=== PATIENT | male | born 1955 | race American Indian/Alaskan Native ===

== ENCOUNTER 2021-04-27 13:13 | Emergency (ER) | payer MEDICARE, BC ==
[2021-04-27 14:58] LABS: Basophils % (Auto) 0.1 % (0.0-1.8); Eosinophils % (Auto) 0.2 % (0.0-4.3); Hematocrit 46.1 % (35.5-45.6); Hemoglobin 14.5 gm/dl (11.8-15.2); Lymphocytes # (Auto) 1.1 K/mm3 (1.2-5.4); Lymphocytes % (Auto) 10.7 % (13.4-35.0); Mean Corpuscular HGB Conc 31 % (32-34); Mean Corpuscular Volume 86 fl (84-94); Monocytes # (Auto) 0.4 K/mm3 (0.0-0.8); Monocytes % (Auto) 3.9 % (0.0-7.3); Platelet Count 234 K/mm3 (140-440); Red Blood Count 5.38 M/mm3 (3.65-5.03)
--- NOTE | 2021-04-27 14:58 | Emergency Department Report ---
ED Altered Mental Status HPI - General Stated Complaint: HIGH BLOOD SUGAR Time Seen by Provider: 04/27/21 14:44 Source: EMS, old records reviewed (No previous medical record available for review) Mode of arrival: Stretcher Limitations: Altered Mental Status, Physical Limitation - History of Present Illness Initial Comments: 66-year male with a past medical history of diabetes presents to the hospital alteration mental status and hyperglycemia. Patient arrives via EMS. History obtained from EMS. Patient apparently last saw the patient normal around dinnertime last night. They heard him ambulate to the restroom at 10 AM. 11 AM they heard him fall and found him on the floor, altered, with an abrasion to right brow. Upon EMS arrival patient's glucose read high. Family states he has been noncompliant with his medication. EMS administered 1 L of normal saline and glucose went down to 532 and then returned to high upon repeat. Patient was assessed by me on the EMS was awaiting bed assignment in the ED. Patient is nonverbal and able to only follow some commands. He appears to be flaccid in the right arm therefore code stroke initiated and I case discussed with neurology attending. Patient placed in c-collar as well interviewed at the bedside once I got in contact with Dr. Jeong at [place] She clarifies that patient got up to eat breakfast at 7 AM and was last seen normal at 10 AM before going to bed for a nap. She then heard him get up approximately 20 minutes later and fall and found him altered. Patient's medications include Metformin, lisinopril, and glipizide. reports he has been noncompliant with meds x2 days. At his baseline he walks without assistance and does not have any deficits. Patient's Leanna Parker [phone] - Related Data Home Medications Medication Instructions Recorded Confirmed Last Taken Metformin HCl [metFORMIN] 1,000 mg PO BID 04/27/21 04/27/21 Unknown glipiZIDE [Glucotrol] 10 mg PO BID 04/27/21 04/27/21 Unknown lisinopriL [Lisinopril] 20 mg PO 04/27/21 Unknown Allergies Allergy/AdvReac Type Severity Reaction Status Date / Time No Known Allergies Allergy Verified 04/27/21 16:19 ED Review of Systems ROS: Stated complaint: HIGH BLOOD SUGAR Other details as noted in HPI Comment: Unobtainable due to pts medical conditions ED Past Medical Hx - Past Medical History Hx Hypertension: Yes Hx Diabetes: Yes - Medications Home Medications: Home Medications Medication Instructions Recorded Confirmed Last Taken Type Metformin HCl [metFORMIN] 1,000 mg PO BID 04/27/21 04/27/21 Unknown History glipiZIDE [Glucotrol] 10 mg PO BID 04/27/21 04/27/21 Unknown History lisinopriL [Lisinopril] 20 mg PO 04/27/21 Unknown History ED Physical Exam - Other Other exam information: General: No acute distress Head: Abrasion to right brow Eyes: normal appearance ENT: Moist mucous membranes Neck: Normal appearance, no midline tenderness Chest: Clear to auscultation bilaterally, no tachypnea CV: Regular rate and rhythm Abdomen: Soft, normal bowel sounds, nontender, nondistended, no rebound or guarding Back: Normal inspection Extremity: Normal inspection, full range of motion Neuro: Alert nonverbal, see NIH stroke scale Skin: No rash - Assessment Assessment Interval: Baseline - Level of Consciousness 1a. Level of Consciousness: alert/keenly responsive - LOC Questions 1b. LOC Questions: answers no questions correctly - LOC Command 1c. LOC Commands: performs no tasks correctly - Best Gaze 2. Best Gaze: forced deviation - Visual 3. Visual: no visual loss - Facial Palsy 4. Facial Palsy: minor paralysis - Motor Arm 5a. Motor Arm Left: no drift 5b. Motor Arm Right: no movement - Motor Leg 6a. Motor Leg Left: no drift 6b. Motor Leg Right: no movement - Limb Ataxia 7. Limb Ataxia: absent - Sensory 8. Sensory: normal - Best Language 9. Best Language: mute/global aphasia - Dysarthria 10. Dysarthria: severe dysarthria - Extinction and Inattention 11. Extinction/Inattention: no abnormality - Scoring Total Score: 20 Stroke Severity: Moderate to Severe Stroke ED Course Vital Signs 04/27/21 04/27/21 04/27/21 15:35 15:45 16:00 Pulse Rate 119 H 72 75 Respiratory 14 19 18 Rate Blood Pressure 129/88 118/92 O2 Sat by Pulse 99 99 Oximetry 04/27/21 04/27/21 04/27/21 16:15 16:31 16:45 Pulse Rate 81 81 89 Respiratory 17 15 12 Rate Blood Pressure 118/92 140/86 140/86 O2 Sat by Pulse 100 Oximetry 04/27/21 04/27/21 17:00 17:15 Pulse Rate 76 84 Respiratory 13 13 Rate Blood Pressure 138/91 138/85 O2 Sat by Pulse 99 98 Oximetry - Consultations Consultation #1: 04/27/21 4:06 PM Case discussed with Dr. Leal neuro pediatric cns at [facility] who agrees patient may be a candidate for intervention however, did not have any neuro ICU beds recommends to call [facility] called at 4:09 PM. 4:45 PM patient was accepted by Dr. Morales. Will receive repeat imaging to determine if patient is a candidate for intervention. This was explained to patient's . She was instructed to keep her phone available since she will be needed to consent for further treatment - Lab Data Result diagrams: 04/27/21 14:49 04/27/21 14:49 Lab Results 04/27/21 04/27/21 04/27/21 Range/Units 14:49 14:49 14:49 WBC 10.1 (4.5-11.0) K/mm3 RBC 5.38 H (3.65-5.03) M/mm3 Hgb 14.5 (11.8-15.2) gm/dl Hct 46.1 H (35.5-45.6) % MCV 86 (84-94) fl MCH 27 L (28-32) pg MCHC 31 L (32-34) % RDW 15.0 (13.2-15.2) % Plt Count 234 (140-440) K/mm3 Lymph % (Auto) 10.7 L (13.4-35.0) % [place] % (Auto) 3.9 (0.0-7.3) % Eos % (Auto) 0.2 (0.0-4.3) % Baso % (Auto) 0.1 (0.0-1.8) % Lymph # (Auto) 1.1 L (1.2-5.4) K/mm3 [place] # (Auto) 0.4 (0.0-0.8) K/mm3 Eos # (Auto) 0.0 (0.0-0.4) K/mm3 Baso # (Auto) 0.0 (0.0-0.1) K/mm3 Seg Neutrophils % 85.1 H (40.0-70.0) % Seg Neutrophils # 8.6 H (1.8-7.7) K/mm3 PT 13.2 (12.2-14.9) Sec. INR 0.90 (0.87-1.13) APTT 23.0 L (24.2-36.6) Sec. Thrombin Time 18.5 (15.1-19.6) Sec. VBG pH (7.320-7.420) Sodium 137 (137-145) mmol/L Potassium 3.8 (3.6-5.0) mmol/L Chloride 99.2 (98-107) mmol/L Carbon Dioxide 19 L (22-30) mmol/L Anion Gap 23 mmol/L BUN 12 (9-20) mg/dL Creatinine 1.0 (0.8-1.3) mg/dL Estimated GFR > 60 ml/min BUN/Creatinine Ratio 12 % Glucose 496 H (75-100) mg/dL POC Glucose (70-105) mg/dL Calcium 8.9 (8.4-10.2) mg/dL Total Bilirubin 0.40 (0.1-1.2) mg/dL AST 15 (5-40) units/L ALT 12 (7-56) units/L Alkaline Phosphatase 85 (35-129) units/L Total Creatine Kinase 119 (55-170) units/L CK-MB (CK-2) 2.2 (0.0-4.0) ng/mL CK-MB (CK-2) Rel Index 1.8 (0-4) Troponin T < 0.010 (0.00-0.029) ng/mL Total Protein 5.9 L (6.3-8.2) g/dL Albumin 3.7 L (3.9-5) g/dL Albumin/Globulin Ratio 1.7 % Plasma/Serum Alcohol (0-0.07) % 04/27/21 04/27/21 04/27/21 Range/Units 14:49 14:52 17:39 WBC (4.5-11.0) K/mm3 RBC (3.65-5.03) M/mm3 Hgb (11.8-15.2) gm/dl Hct (35.5-45.6) % MCV (84-94) fl MCH (28-32) pg MCHC (32-34) % RDW (13.2-15.2) % Plt Count (140-440) K/mm3 Lymph % (Auto) (13.4-35.0) % [place] % (Auto) (0.0-7.3) % Eos % (Auto) (0.0-4.3) % Baso % (Auto) (0.0-1.8) % Lymph # (Auto) (1.2-5.4) K/mm3 [place] # (Auto) (0.0-0.8) K/mm3 Eos # (Auto) (0.0-0.4) K/mm3 Baso # (Auto) (0.0-0.1) K/mm3 Seg Neutrophils % (40.0-70.0) % Seg Neutrophils # (1.8-7.7) K/mm3 PT (12.2-14.9) Sec. INR (0.87-1.13) APTT (24.2-36.6) Sec. Thrombin Time (15.1-19.6) Sec. VBG pH 7.345 (7.320-7.420) Sodium (137-145) mmol/L Potassium (3.6-5.0) mmol/L Chloride (98-107) mmol/L Carbon Dioxide (22-30) mmol/L Anion Gap mmol/L BUN (9-20) mg/dL Creatinine (0.8-1.3) mg/dL Estimated GFR ml/min BUN/Creatinine Ratio % Glucose (75-100) mg/dL POC Glucose 382 H (70-105) mg/dL Calcium (8.4-10.2) mg/dL Total Bilirubin (0.1-1.2) mg/dL AST (5-40) units/L ALT (7-56) units/L Alkaline Phosphatase (35-129) units/L Total Creatine Kinase (55-170) units/L CK-MB (CK-2) (0.0-4.0) ng/mL CK-MB (CK-2) Rel Index (0-4) Troponin T (0.00-0.029) ng/mL Total Protein (6.3-8.2) g/dL Albumin (3.9-5) g/dL Albumin/Globulin Ratio % Plasma/Serum Alcohol < 0.01 (0-0.07) % - EKG Data -: EKG Interpreted by In EKG shows normal: sinus rhythm, ST-T waves (no stemi) Rate: normal (77) When compared to previous EKG there are: previous EKG unavailable - Radiology Data Radiology results: report reviewed CT head/brain wo con INDICATION / CLINICAL INFORMATION: 66 years Male; ams, fall, head injury, right sided weakness. TECHNIQUE: Routine CT head without contrast. All CT scans at this location are performed using CT dose reduction for ALARA by means of automated exposure control. COMPARISON: None. FINDINGS: BRAIN / INTRACRANIAL CONTENTS: The motion degrades the image quality at. However, there is subtle loss of the ramirez-white matter differentiation along the left basal ganglia and insular region concerning for evolving infarct. Additionally, there is relative increased attenuation within the proximal left MCA concerning for a thrombus given the above findings. There otherwise appears be mild cerebral white matter disease most consistent with microvascular angiopathy. There is no clear CTA evidence of intracranial hemorrhage or significant mass effect. ORBITS: No significant abnormality of visualized orbits. SINUSES / MASTOIDS: No significant abnormality in the visualized paranasal sinuses or mastoid air cells. CRANIOCERVICAL JUNCTION: No significant abnormality. ADDITIONAL FINDINGS: None. IMPRESSION: 1. The findings are indicative of early changes of left MCA infarct with thrombus within the proximal segment as detailed above. 2. There is no clear CT evidence of acute intracranial hemorrhage. CT cervical spine wo con INDICATION / CLINICAL INFORMATION: 66 years Male; ams, fall, head injury, right sided weakness. TECHNIQUE: Axial CT images of the cervical spine were obtained. Sagittal and coronal reformatted images were produced. All CT scans at this location are performed using CT dose reduction for ALARA by means of automated exposure control. COMPARISON: None available. FINDINGS: POST-SURGICAL CHANGES: None. ALIGNMENT: There is mild curvature the cervical spine, convex toward the left. There is no significant spondylolisthesis. VERTEBRAE: There is mild to moderate disc space narrowing from C4-5 to C6-7 with associated endplate changes. Mild findings are also noted at T1-2. However, there is no clear CT evidence of acute fracture involving cervical spine. INTRAVERTEBRAL DISCS: The broad-based disc bulge at C3-4 effaces the ventral subarachnoid space. There is mild neural foraminal narrowing bilaterally. There is moderate right foraminal narrowing at C4-5. Additionally, there appears be right paracentral disc protrusion which mildly deforms the right ventral cord. The spondylosis at C5-6 appears to mildly encroach on the ventral cord. There is moderate foraminal narrowing bilaterally. The spondylosis at C6-7 is greater on the left with effacement of the left lateral recess. There is moderate to marked left and moderate right neural foraminal narrowing. PARASPINAL SOFT TISSUES: No prevertebral soft tissue fluid collections are appreciated. ADDITIONAL FINDINGS: None. IMPRESSION: 1. There is no clear CT evidence of acute fracture involving cervical spine. 2. There are multilevel advanced to changes as detailed above. The findings. Include a right paracentral disc protrusion at C4-5 which mildly deforms the right ventral cord. CTA head with intravenous contrast CLINICAL HISTORY: Right hemiparesis. stroke sx 100ML 350 Omnipaque TECHNIQUE: 0.625 mm thick contiguous axial scans were obtained from the skull base to the skull vertex during rapid bolus administration of intravenous contrast material. Multiplanar reconstructions were produced in the coronal and sagittal planes. In addition 3 plane MIP instructions were produced and reviewed for this report. The axial source images and reconstructed images were reviewed for this report. CONTRAST DOSE REPORT: Omnipaque 350: 100 ml administered intravenously. All CT scans at this location are performed using CT dose reduction for ALARA by means of automated exposure control. FINDINGS: Internal carotid arteries: Complete occlusion of the LICA continues through its intracranial segments. This extends into the communicating segment to the terminal bifurcation and involves proximal M1 segment of the left middle cerebral artery. Middle cerebral arteries:Normal and symmetrical M1 segments of the middle cerebral arteries are demonstrated. No abnormalities are seen on evaluation of the insular or opercular branches. Anterior cerebral arteries:Bilaterally symmetrical A1 segments are demonstrated. No abnormalities are seen along the course of the A2 segments or their visualized pericallosal branches. An intact anterior communicating artery without visualization of the A1 segment of the left anterior cerebral artery. Vertebral arteries: Right vertebral artery is dominant. Both vertebral arteries contribute to the basilar artery origin. Basilar artery:Basilar artery has an unremarkable appearance. Posterior cerebral arteries:Bilaterally symmetrical posterior cerebral arteries are identified. Posterior communicating arteries are demonstrated bilaterally. [place]: Intact. see above. Dural sinuses: Dural venous sinuses are well demonstrated on this exam. There is no evidence of dural sinus thrombosis. IMPRESSION: 1. Complete occlusion of the left internal carotid artery extending into the proximal M1 segment of the left middle cerebral artery. CT angio neck INDICATION / CLINICAL INFORMATION: 66 years Male; stroke sx. TECHNIQUE: Thin cut axial images obtained through the head during IV bolus contrast administration. Sagittal, coronal, and 3 plane MIP reconstructions performed by the technologist. NASCET type criteria used evaluate stenoses. All CT scans at this location are performed using CT dose reduction for ALARA by means of automated exposure control. COMPARISON: None available. FINDINGS: CAROTID ARTERIES: There is occlusion of the proximal left ICA approximately 1.5 cm from the bifurcation with notable tapering. The motion and beam hardening degrade the image quality. However, there is no evidence of reconstitution of the cervical segments. There is no significant stenosis involving the right internal carotid artery by NASCET criteria. 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 The right vertebral artery is dominant without significant focal stenosis. ARCH: The beam hardening particularly obscures the arch of vessels. However, there is no significant narrowing of the origins of the arch vessels at. There appears be developmental common origin of the brachiocephalic and left common carotid arteries. ADDITIONAL FINDINGS: IMPRESSION: There is occlusion of the proximal left ICA as detailed above. The findings were discussed with requesting physician regarding the CT head, CTA head and neck at the time of dictation at 2:51 PM Central standard time per the code stroke protocol. - Medical Decision Making 66-year-old male presents to the hospital alteration in mental status and hypoglycemia found to have acute stroke upon ED assessment by MD. Initially last known well time was reported as last night by EMS however, upon further clarification after ED work-up patient was last seen normal by about 10 AM. Patient was deemed not a thrombolytic candidate due to initial unclear history with last known well time admission reported by EMS to be last night. After my evaluation, suspicion and work-up for stroke, and clarification of history with family patient was out of the window to receive TPA but deemed a possible throm bectomy candidate after discussion with neuro interventionalists at both [facility] and [facility]. I initially spoke to Dr. LUZ Arguello however, [facility] did not have any neuro ICU beds. Patient was then subsequently discussed with Dr. Morales at [place] and accepted for emergent transfer with plan to repeat CTA and perfusion studies to deem if patient is a thrombectomy candidate. This was discussed with patient's at the bedside. Patient will be flown stat to [facility] via helicopter for possible intervention Patient did have a CT head and CT cervical spine to rule out traumatic injury due to fall IV insulin provided for hyperglycemia without signs of DKA/acidosis as per venous pH Critical Care Time: Yes Critical care time in (mins) excluding proc time.: 35 Critical care attestation.: If time is entered above; I have spent that time in minutes in the direct care of this critically ill patient, excluding procedure time. Critical Care Time: Minutes of critical care time excluding procedures were used in the care of the patient. shahid I obtained history from EMS at the bedside. I discussed treatment plan with the nursing team members. I reviewed electronic record. I spoke with family to obtain medical history. Patient required multiple phone calls with neurology and neuro interventional list as well as arrangements of transfer ED Disposition Clinical Impression: Acute stroke due to ischemia, Hyperglycemia, Noncompliance with medication regimen Disposition: 02 SHORT TERM HOSPITAL Is pt being admited?: No Condition: Stable
--- NOTE | 2021-04-27 15:04 | Consultation ---
History of Present Illness - Reason for Consult Consult date: 04/27/21 - History of Present Illness [facility] Consult Note # Demographics Consult Type: Acute Stroke Level 1 (0-4.5 hrs) Patient Location: Emergency Room First Name: Leah Last Name: Keith Date of : 1955 Age: 66 Gender: Male Facility: [facility] Time of Initial Page ( Time): 04/27/2021, 14:53 Time of Return Call ( Time): 04/27/2021, 14:53 # HPI History: 66yo man who is nonverbal and noted to have right sided weakness. He apparently went to bathroom at 10AM today. Last Known Normal: dinner last night. possible 10AM today # Scores Time of exam and NIHSS ( Time): 04/27/2021, 15:02 Level of Consciousness 1a: [0] = Alert; keenly responsive LOC Questions 1b: [2] = Answers neither correctly LOC Commands 1c: [2] = Performs neither correctly Best Gaze 2: [2] = Forced deviation Visual 3: [0] = No visual loss Facial Palsy 4: [1] = Minor paralysis Motor Arm Left 5a: [0] = No drift Motor Arm Right 5b: [4] = No movement Motor Leg Left 6a: [0] = No drift Motor Leg Right 6b: [4] = No movement Limb Ataxia 7: [0] = Absent Sensory 8: [0] = Normal Best Language 9: [3] = Mute Dysarthria 10: [2] = Severe dysarthria Extinction and Inattention 11: [0] = No abnormality NIHSS Total: 20 # Data Head CT: no bleed hyperdense MCA sign on left side # Assessment Impression: Ischemic Stroke (Acute) # Plan Thrombolytic/Intervention: Possible IA candidate Thrombolytic Exclusion: > 4.5 hours Possible IA Candidate: CTA pending Target Blood Pressure: SBP < 220 Labs: ESR lipid panel Imaging: (urgency: STAT): CT Angiogram Head and CT Angiogram Neck Imaging: (urgency: routine): MRI Brain without contrast Diagnostic Test: echo without bubble study Therapy/Evaluation: NPO until swallow evaluation PT/OT evaluation speech/swallow consultation Medication: aspirin 81 mg daily DVT Prophylaxis: SCD chemical DVT prophylaxis Other: permissive hypertension telemetry monitoring I have discussed my recommendations with the referring provider Disposition: transfer to [facility] capable facility
[2021-04-27 15:15] LABS: INR 0.9 (0.87-1.13)
[2021-04-27 15:16] LABS: Thrombin Time 18.5 Sec. (15.1-19.6)
[2021-04-27 15:24] LABS: Creatine Kinase MB 2.2 ng/mL (0.0-4.0)
[2021-04-27 15:26] LABS: Alanine Aminotransferase 12 units/L (7-56); Albumin 3.7 g/dL (3.9-5); BUN/Creatinine Ratio 12; Blood Urea Nitrogen 12 mg/dL (9-20); Calcium 8.9 mg/dL (8.4-10.2); Hemolysis Index 10
--- NOTE | 2021-04-27 15:44 | Cat Scan Report ---
CT head/brain wo con INDICATION / CLINICAL INFORMATION: 66 years Male; ams, fall, head injury, right sided weakness. TECHNIQUE: Routine CT head without contrast. All CT scans at this location are performed using CT dos e reduction for ALARA by means of automated exposure control. COMPARISON: None. FINDINGS: BRAIN / INTRACRANIAL CONTENTS: The motion degrades the image quality at. However, there is subtle los s of the ramirez-white matter differentiation along the left basal ganglia and insular region concerning for evolving infarct. Additionally, there is relative increased attenuation within the proximal left MCA concerning for a thrombus given the above findings. There otherwise appears be mild cerebral white matter disease most consistent with microvascular vivi opathy. There is no clear CTA evidence of intracranial hemorrhage or significant mass effect. ORBITS: No significant abnormality of visualized orbits. SINUSES / MASTOIDS: No significant abnormality in the visualized paranasal sinuses or mastoid air lea ls. CRANIOCERVICAL JUNCTION: No significant abnormality. ADDITIONAL FINDINGS: None. IMPRESSION: 1. The findings are indicative of early changes of left MCA infarct with thrombus within the proximal segment as detailed above. 2. There is no clear CT evidence of acute intracranial hemorrhage. Signer Name: Maik Tirado MD Signed: 04/27/2021 3:40 PM Workstation Name: [id number]
--- NOTE | 2021-04-27 15:51 | Cat Scan Report ---
CT cervical spine wo con INDICATION / CLINICAL INFORMATION: 66 years Male; ams, fall, head injury, right sided weakness. TECHNIQUE: Axial CT images of the cervical spine were obtained. Sagittal and coronal reformatted images were pr oduced. All CT scans at this location are performed using CT dose reduction for ALARA by means of aut omated exposure control. COMPARISON: None available. FINDINGS: POST-SURGICAL CHANGES: None. ALIGNMENT: There is mild curvature the cervical spine, convex toward the left. There is no significan t spondylolisthesis. VERTEBRAE: There is mild to moderate disc space narrowing from C4-5 to C6-7 with associated endplate changes. Mild findings are also noted at T1-2. However, there is no clear CT evidence of acute fractu re involving cervical spine. INTRAVERTEBRAL DISCS: The broad-based disc bulge at C3-4 effaces the ventral subarachnoid space. Ther e is mild neural foraminal narrowing bilaterally. There is moderate right foraminal narrowing at C4-5 . Additionally, there appears be right paracentral disc protrusion which mildly deforms the right garrick tral cord. The spondylosis at C5-6 appears to mildly encroach on the ventral cord. There is moderate foraminal n arrowing bilaterally. The spondylosis at C6-7 is greater on the left with effacement of the left late ral recess. There is moderate to marked left and moderate right neural foraminal narrowing. PARASPINAL SOFT TISSUES: No prevertebral soft tissue fluid collections are appreciated. ADDITIONAL FINDINGS: None. IMPRESSION: 1. There is no clear CT evidence of acute fracture involving cervical spine. 2. There are multilevel advanced to changes as detailed above. The findings. Include a right paracent ral disc protrusion at C4-5 which mildly deforms the right ventral cord. Signer Name: Maik Tirado MD Signed: 04/27/2021 3:46 PM Workstation Name: [id number]
--- NOTE | 2021-04-27 15:53 | Cat Scan Report ---
CTA head with intravenous contrast CLINICAL HISTORY: Right hemiparesis. stroke sx 100ML 350 Omnipaque TECHNIQUE: 0.625 mm thick contiguous axial scans were obtained from the skull base to the skull vertex during r apid bolus administration of intravenous contrast material. Multiplanar reconstructions were produced in the coronal and sagittal planes. In addition 3 plane MIP instructions were produced and reviewed for this report. The axial source images and reconstructed images were reviewed for this report. CONTRAST DOSE REPORT: Omnipaque 350: 100 ml administered intravenously. All CT scans at this location are performed using CT dose reduction for [facility] by means of automated e xposure control. FINDINGS: Internal carotid arteries: Complete occlusion of the LICA continues through its intracranial segments . This extends into the communicating segment to the terminal bifurcation and involves proximal M1 se gment of the left middle cerebral artery. Middle cerebral arteries:Normal and symmetrical M1 segments of the middle cerebral arteries are demon strated. No abnormalities are seen on evaluation of the insular or opercular branches. Anterior cerebral arteries:Bilaterally symmetrical A1 segments are demonstrated. No abnormalities are seen along the course of the A2 segments or their visualized pericallosal branches. An intact anteri or communicating artery without visualization of the A1 segment of the left anterior cerebral artery. Vertebral arteries: Right vertebral artery is dominant. Both vertebral arteries contribute to the bas ilar artery origin. Basilar artery:Basilar artery has an unremarkable appearance. Posterior cerebral arteries:Bilaterally symmetrical posterior cerebral arteries are identified. Post erior communicating arteries are demonstrated bilaterally. [place]: Intact. see above. Dural sinuses: Dural venous sinuses are well demonstrated on this exam. There is no evidence of dural sinus thrombosis. IMPRESSION: 1. 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 CRITICAL RESULT: Time of Discovery (TYPIST/CDT): 1437 Central standard time Time of Communication (TYPIST/CDT): 1445 Central standard time Licensed Practitioner Receiving Report: Dr. Denisse Lee Read-Back Performed: Not applicable. Signer Name: Giancarlo Tirado MD Signed: 04/27/2021 3:49 PM Workstation Name: [id number]
--- NOTE | 2021-04-27 15:58 | Cat Scan Report ---
CT angio neck INDICATION / CLINICAL INFORMATION: 66 years Male; stroke sx. TECHNIQUE: Thin cut axial images obtained through the head during IV bolus contrast administration. S agittal, coronal, and 3 plane MIP reconstructions performed by the technologist. NASCET type criteria used evaluate stenoses. All CT scans at this location are performed using CT dose reduction for ALAR A by means of automated exposure control. COMPARISON: None available. FINDINGS: CAROTID ARTERIES: There is occlusion of the proximal left ICA approximately 1.5 cm from the bifurcati on with notable tapering. The motion and beam hardening degrade the image quality. However, there is no evidence of reconstitution of the cervical segments. There is no significant stenosis involving the right internal carotid artery by NASCET criteria. 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 The right vertebral artery is dominant w ithout significant focal stenosis. ARCH: The beam hardening particularly obscures the arch of vessels. However, there is no significant narrowing of the origins of the arch vessels at. There appears be developmental common origin of the brachiocephalic and left common carotid arteries. ADDITIONAL FINDINGS: IMPRESSION: There is occlusion of the proximal left ICA as detailed above. The findings were discussed with requesting physician regarding the CT head, CTA head and neck at the time of dictation at 2:51 PM Central standard time per the code stroke protocol. Signer Name: Maik Tirado MD Signed: 04/27/2021 3:53 PM Workstation Name: [id number]
[2021-04-27] MEDS ORDERED: INSULIN REGULAR, HUMAN 100 UNITS/1 ML IV ONE (16:07)
[2021-04-27 17:24] VITALS: BP 138/85
--- NOTE | 2021-04-29 10:58 | Electrocardiograph Report ---
[facility] Test Date: 2021-04-27 Test Time: 17:43:38 Pat Name: KELSI CALVO Department: Room: Gender: M Technical Business Systems Analyst: DARSHANA : 1955 Requested By: KYLE BANDA Order Number: [id number] Reading MD: Evan Cerda Measurements Intervals [place] Rate: 77 P: 47 [place]: 181 QRS: 14 QRSD: 85 T: 8 QT: 388 QTc: 438 Interpretive Statements Sinus rhythm Low voltage, extremity leads ST elevation suggests acute pericarditis No previous ECG available for comparison Electronically Signed On 04-29-2021 10:58:31 EST by Evan Cerda
== END 2021-04-27 18:00 | disposition short-term general hospital (02) ==
LOC: ED 13:13
DX: I63.9 Cerebral infarction, unspecified (principal); E11.65 Type 2 diabetes mellitus with hyperglycemia; I10 Essential (primary) hypertension; Z79.84 Long term (current) use of oral hypoglycemic drugs; Z79.899 Other long term (current) drug therapy
CPT/HCPCS: 36415; 70450; 70496; 70498; 72125; 80053; 82550; 82553; 82805; 82962; 84484; 85025; 85610; 85670; 85730; 93005; 96374; 99291; Q9967; 80320; 99285; G0480; J1815